=== PATIENT | male | born 1995 | race Caucasian/White ===

== ENCOUNTER 2017-06-29 02:02 | Emergency (ER) | payer SELFPAY ==
[~2017-06-29] VITALS: Ht 182.9 cm; Wt 66.5 kg
[2017-06-29 02:17] VITALS: Ht 182.9 cm; Wt 66.5 kg
== END 2017-06-29 02:22 | disposition left against medical advice (07) ==
LOC: FTE 02:02
DX: Z53.21 Procedure and treatment not carried out due to patient leaving prior to being seen by health care provider (principal)